=== PATIENT | female | born 1985 | race Caucasian/White ===

== ENCOUNTER → 2017-06-14 16:42 | Outpatient (CLI) | payer BC | END | disposition home or self-care (01) | LOC: D.MAMMO 09:00 | DX: N63 Unspecified lump in breast (principal) ==

== ENCOUNTER 2017-08-02 06:59 | Day surgery (SDC) | payer BC ==
[~2017-08-02 06:59] MED LIST: GIANVI PO; SYNTHROID75 MCG PO; ULTRAM50 MG PO
[2017-08-02 08:25] LABS: CALC OSMOLALITY 274 mosm/kg (275-300); CALCIUM 8.7 mg/dL (8.5-10.1); CHLORIDE - SERUM 104 mmol/L (98-107); CREATININE - SERUM 0.7 mg/dL (0.6-1.3); GLUCOSE 89 mg/dL (74-106); SODIUM 139 mmol/L (136-145); UREA NITROGEN 7 mg/dL (7-18); eGFR NON AFRICAN AMERICAN > 90 mL/min (90-120)
[2017-08-02 08:31] VITALS: BP 109/76; BMI 22.9
[2017-08-02 08:38] LABS: HCG URINE NEGATIVE (NEGATIVE)
[2017-08-02 09:03] LABS: BASOPHILS 0.4 % (0-2); EOSINOPHILS 1.4 % (0-7); HEMATOCRIT 39.3 % (36.0-48.0); HEMOGLOBIN 13.3 g/dL (12-16); IMMATURE GRANULOCYTES 0.2 % (0-5); LYMPHOCYTES 29.8 % (15-50); MCH 30.6 pg (26.0-34.0); MCHC 33.8 g/dL (31.0-37.0); MCV 90.3 fL (80.0-100.0); MEAN PLATELET VOLUME 11.5 fL (7.4-10.4); MONOCYTES 7.6 % (2-11); NEUTROPHILS 60.6 % (40-80); PLATELET COUNT 251 10x3/uL (130-400); RBC 4.35 10x6/uL (4.00-5.40); RDW 12.5 % (11.5-14.5); WBC 5.6 10x3/uL (4.8-10.8)
[2017-08-02] MEDS ORDERED: HYDROCODONE-APA1 TAB PO (10:04)
--- NOTE | 2017-08-02 10:55 | NUR ---
1050 NORCO 10MG PO GIVEN FOR C/O PAIN 03/05. FL DIET SERVED. CRITERIA FOR RELEASE GIVEN. TIME FRAMES FOR RELEASE GIVEN.
--- NOTE | 2017-08-09 14:51 | OP ---
PATIENT NAME: RAYSHAWN ZHONG MEDICAL RECORD: [id number] :87 LOCATION:D.OPS ADMISSION DATE: SURGEON: LAURA DAVENPORT MD DATE OF OPERATION: 08/02/2017 PREOPERATIVE DIAGNOSES: 1. Internal hemorrhoids. 2. Hypothyroidism. POSTOPERATIVE DIAGNOSES: 1. Internal hemorrhoids. 2. Hypothyroidism. 3. Anal skin tag. PROCEDURES: Anal exam under anesthesia with removal of anal skin tags and banding of left lateral internal hemorrhoid. SURGEON: Laura Davenport MD REPORT OF PROCEDURE: The patient was placed in the jackknife prone position and the perianal region was prepped and draped in sterile fashion. An anoscope was inserted and a 360 degree inspection was performed. The patient had 3 anal skin tags with there being a large one on the left lateral aspect. This large left lateral skin tag was consistent with a pedunculated mass, which was seen in clinic. This had a small base. We elevated the skin tag and removed it using electrocautery. The skin tag penetrated right at the dentate line. There were 3 other small skin tags present and these were all removed with electrocautery. As we inspected the anus some more, there was some friability to the tissue in the left lateral aspect with what appeared to be a small conglomerate of internal hemorrhoids. These were grasped and elevated, and a 2-0 chromic was placed around the base of them in a banding fashion. This was tied down tightly. At this point, there appear to be no sign of any active bleeding. A 10 cc of 0.25% Marcaine with epinephrine was infused in the surrounding tissues. At this point, a dressing was placed over the anus. COMPLICATIONS: None. CONDITION: Stable. ANESTHESIA: General endotracheal and local. BLOOD LOSS: Minimal. TRANSINT:[id number] Voice Confirmation ID: [id number] DOCUMENT ID: [id number] LAURA DAVENPORT MD at 1451 CC: TIM ISLAS MD [id number] DICTATION DATE: 08/02/17 1008 SHEATHER: 08/02/17 1140 [facility] 08/02/17 [place] [id number]
== END 2017-08-02 11:50 | disposition home or self-care (01) ==
LOC: D.OPS 06:59 → D.PAN 09:30 → D.OPS 09:45 → D.PAN 09:45 → D.OPS 11:50
PROVIDERS: Surgery
DX: K64.8 Other hemorrhoids (principal); K64.4 Residual hemorrhoidal skin tags; E03.9 Hypothyroidism, unspecified; Z01.812 Encounter for preprocedural laboratory examination

== ENCOUNTER 2020-02-05 06:43 | Inpatient (IN) | payer MEDICAID ==
[~2020-02-05] VITALS: Ht 170.2 cm; Wt 74.8 kg
[2020-02-05] VITALS (8 sets, daily range): BP systolic 113–128; BP diastolic 49–81; BMI 25.9
[~2020-02-05 06:43] MED LIST changes: +HYDROCODONE-APA1 TAB PO
[2020-02-05] MEDS ORDERED: HYDROCODON-ACE1 EAC2 PO (06:47)
[2020-02-05 07:02] LABS: HEMATOCRIT 44.6 % (36.0-48.0); HEMOGLOBIN 14.8 g/dL (12-16); LYMPHOCYTES 4.4 % (15-50); MCH 30.4 pg (26.0-34.0); MCHC 33.2 g/dL (31.0-37.0); MCV 91.6 fL (80.0-100.0); MEAN PLATELET VOLUME 10.3 fL (7.4-10.4); NEUTROPHILS 89.3 % (40-80); PLATELET COUNT 204 10x3/uL (130-400); RBC 4.87 10x6/uL (4.00-5.40); RDW 12.4 % (11.5-14.5); WBC 16.9 10x3/uL (4.8-10.8)
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
[2020-02-05 07:15] LABS: CALC OSMOLALITY 272 mosm/kg (275-300); CALCIUM 8.8 mg/dL (8.5-10.1); CARBON DIOXIDE 20.8 mmol/L (21.0-32.0); CHLORIDE - SERUM 102 mmol/L (98-107); CREATININE - SERUM 0.9 mg/dL (0.6-1.3); POTASSIUM - SERUM 3.8 mmol/L (3.5-5.1); SODIUM 136 mmol/L (136-145); UREA NITROGEN 11 mg/dL (7-18); eGFR NON AFRICAN AMERICAN 76 mL/min (90-120)
[2020-02-05 07:16] LABS: GLUCOSE 135 mg/dL (74-106)
[2020-02-05 07:23] LABS: ALKALINE PHOSPHATASE 43 U/L (30-120); ALT (SGPT) 22 U/L (10-68); AMYLASE - SERUM 19 U/L (25-115); BILIRUBIN - TOTAL 0.48 mg/dL (0.2-1.3); LIPASE 51 U/L (73-393); PROTEIN - SERUM 7.8 g/dL (6.4-8.2); TROPONIN-I < 0.017 ng/mL (0.000-0.060)
[2020-02-05 07:36] LABS: HCG URINE NEGATIVE (NEGATIVE)
[2020-02-05 07:54] LABS: BILIRUBIN NEGATIVE (NEGATIVE); GLUCOSE NEGATIVE (NEGATIVE); KETONE SMALL mg/dL (NEGATIVE); NITRITE NEGATIVE (NEGATIVE); SPECIFIC GRAVITY 1.015 (1.005-1.020); UROBILINOGEN NORMAL (NORMAL)
[2020-02-05 07:56] LABS: BACTERIA MODERATE /hpf (NEGATIVE); RED CELLS - URINE 0-5 /hpf (0-5); WHITE CELLS - URINE 0-5 /hpf (NEGATIVE)
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
--- NOTE | 2020-02-05 11:53 | NUR ---
WAS MEDICATED WITH DILAUDID AT THIS TIME FOR C/O ABD. PAIN. C/L IN REACH AT BEDSIDE.
--- NOTE | 2020-02-05 12:16 | NUR ---
NO TELEMETRY AVAILABLE RIGHT NOW PLACED ON LIST.
--- NOTE | 2020-02-05 15:45 | MORECARE ---
CASE MANAGEMENT DISCHARGE SUMMARY PATIENT: RAYSHAWN ZHONG UNIT: [id number] ADM DATE: 02/05/20 AGE: 34 : [birth year] SEX: F ROOM/BED: D.2228 AUTHOR: SOFIE VASQUEZ PHYSICIAN: REFERRING PHYSICIAN: LYRIC HANKS DO DATE OF SERVICE: 02/05/20 Discharge Plan Patient Name: RAYSHAWN ZHONG Facility: [facility]:[place] : 1985 Planned Disposition: Anticipated Discharge Date: Discharge Date: Expected LOS: Initial Reviewer: [email or web address] Initial Review Date: 02/05/2020 Generated: 02/05/20 4:45 pm DCPIA - Discharge Planning Initial Assessment Updated by [email or web address]: Nilda Galaviz on 02/05/20 3:45 pm * Is the patient Alert and Oriented? Yes * PCP [facility] * Pharmacy [facility] * Preadmission Environment Home with Family * ADLs Independent * Equipment None * Additional services required to return to the preadmission environment? No * Can the patient safely return to the preadmission environment? Yes * Has this patient been hospitalized within the prior 30 days at any hospital? No Patient Name: RAYSHAWN ZHONG Page [id number] at 1545 All edits/amendments must be made on the electronic document DICTATION DATE: 02/05/20 1545 NURSING HOME ADMINISTRATOR: LIN 02/05/20 1545 RPT#: [id number] DC DATE: STATUS: ADM IN [facility] [address] [place] [address] END OF REPORT
--- NOTE | 2020-02-05 15:54 | MORECARE ---
CASE MANAGEMENT DISCHARGE SUMMARY PATIENT: RAYSHAWN ZHONG UNIT: [id number] ADM DATE: 02/05/20 AGE: 34 : 87 SEX: F ROOM/BED: D.2228 AUTHOR: SOFIE VASQUEZ PHYSICIAN: REFERRING PHYSICIAN: LYRIC HANKS DO DATE OF SERVICE: 02/05/20 Discharge Plan Patient Name: RAYSHAWN ZHONG Facility: [facility]:[place] : 1985 Planned Disposition: Anticipated Discharge Date: Discharge Date: Expected LOS: Initial Reviewer: [email or web address] Initial Review Date: 02/05/2020 Generated: 02/05/20 4:54 pm Comments DCP- Discharge Planning Updated by [email or web address]: Nilda Galaviz on 02/05/20 2:[address] Patient Name: RAYSHAWN ZHONG Admission Status: ER Accout number: [id number] Admission Date: 02-05-2020 : 1985 Admission Diagnosis: Attending: LYRIC HANKS Current LOS: 1 Anticipated DC Date: Planned Disposition: Primary Insurance: [employer] EXCHANGE Discharge Planning Comments: CM met with patient at bedside after explaining CM role and obtaining verbal consent. CM discussed availability / needs of home health, REHAB and medical equipment. PATIENT DENIES ANY DISCHARGE NEEDS AT THIS TIME. Electric Blanket Packer: Nilda Galaviz DCPIA - Discharge Planning Initial Assessment Updated by [email or web address]: Nilda Galaviz on 02/05/20 3:45 pm * Is the patient Alert and Oriented? Yes * PCP [facility] * Pharm[facility] * Preadmission Environment Home with Family * ADLs Independent * Equipment None * Additional services required to return to the preadmission environment? No * Can the patient safely return to the preadmission environment? Yes * Has this patient been hospitalized within the prior 30 days at any hospital? No Last DP export: 02/05/20 2:45 p Patient Name: RAYSHAWN ZHONG Page [id number] at 9284 All edits/amendments must be made on the electronic document DICTATION DATE: 02/05/20 5883 DRAMATIC TEACHER: LIN 02/05/20 6249 RPT#: [id number] DC DATE: STATUS: ADM IN [facility] [address] [place] [address] END OF REPORT
--- NOTE | 2020-02-05 19:10 | NUR ---
LYING IN BED. LETHARGIC AND SPEECH SLURRED. CONFUSED. ORIENTED TO SELF AND PLACE. STATES ITS 1985, THEN SAID NO...20. APPEARS SEDATED FROM DILAUDID GIVEN EARLIER. CONT SAO2 MONITOR IN USE. V/S STABLE. TELEMETRY SHOWS SR WITH RATE OF 81. DENIES NAUSEA. ZOFRAN DRIP IN USE. NS @ 75 ML/HR INFUSING IN LT AC. REFUSED SCDS. ASSISTED UP TO BSC. BARB ALARM PLACED ON BED. C/O H/A. SR ELEVATED X2. CL IN REACH. REPORTS NECK IS STIFF AND SORE.
--- NOTE | 2020-02-05 20:40 | NUR ---
REQUESTING PAIN MED. MORE ALERT NOW. UP TO BR. DIARRHEA NOTED. MEDICATED WITH DILAUDID. BARB ALARM ON. CL IN REACH.
--- NOTE | 2020-02-05 23:20 | NUR ---
TELLS APPLIER THAT SHE CANT MOVE HER NECK. PT IS ABLE TO MOVE NECK BUT STATES IT HURTS. SAYS IT HURT BEFORE SHE WAS ADMITTED. NOTIFIED NATY OF PT C/O NECK PAIN AND STIFFNESS. ALSO NOTIFIED OF CONFUSION AND LETHARGY AT START OF SHIFT FROM DILAUDID. NEW ORDER NOTED TO CHANGE DILAUDID TO [id number] IN ORDER TO EVALUATE NEURO STATUS MORE EFFECTIVELY. PT WANTING PAIN MED. EXPLAINED THIS TO PT AND SHE GOT UPSET AND STARTED CRYING AND CALLED HER MOTHER TO TELL HER. MEDICATED WITH TYLENOL PER REQUEST FOR C/O H/A.
[2020-02-06 00:47] VITALS: BP 121/72
--- NOTE | 2020-02-06 02:30 | NUR ---
REQUESTED PAIN MED.MEDICATED WITH DILAUDID FOR C/O H/A AND ABD PAIN. CL IN REACH.
--- NOTE | 2020-02-06 03:38 | NUR ---
MEDICATED WITH TYLENOL FOR C/O H/A. CL IN REACH.
[2020-02-06 05:43] LABS: BASOPHILS 0.1 % (0-2); EOSINOPHILS 0 % (0-7); HEMATOCRIT 37.7 % (36.0-48.0); HEMOGLOBIN 12.2 g/dL (12-16); IMMATURE GRANULOCYTES 0.4 % (0-5); LYMPHOCYTES 12.9 % (15-50); MCH 30.2 pg (26.0-34.0); MCHC 32.4 g/dL (31.0-37.0); MCV 93.3 fL (80.0-100.0); MONOCYTES 7.5 % (2-11); NEUTROPHILS 79.1 % (40-80); PLATELET COUNT 187 10x3/uL (130-400); RBC 4.04 10x6/uL (4.00-5.40); RDW 12.7 % (11.5-14.5)
[2020-02-06 06:10] VITALS: BP 113/74
[2020-02-06 06:13] LABS: WBC 7.7 10x3/uL (4.8-10.8)
[2020-02-06 06:26] LABS: ALBUMIN 3.1 g/dL (3.4-5.0); ALKALINE PHOSPHATASE 33 U/L (30-120); ALT (SGPT) 18 U/L (10-68); BILIRUBIN - TOTAL 0.23 mg/dL (0.2-1.3); CALCIUM 8.1 mg/dL (8.5-10.1); CARBON DIOXIDE 20.6 mmol/L (21.0-32.0); CHLORIDE - SERUM 105 mmol/L (98-107); GLUCOSE 107 mg/dL (74-106); PHOSPHOROUS 1.9 mg/dL (2.5-4.9); PROTEIN - SERUM 6.4 g/dL (6.4-8.2); SODIUM 135 mmol/L (136-145)
[2020-02-06 06:34] LABS: CALC OSMOLALITY 266 mosm/kg (275-300); CREATININE - SERUM 0.6 mg/dL (0.6-1.3); UREA NITROGEN 5 mg/dL (7-18); eGFR NON AFRICAN AMERICAN > 90 mL/min (90-120)
[2020-02-06 06:35] LABS: POTASSIUM - SERUM 2.9 mmol/L (3.5-5.1)
[2020-02-06 08:00] VITALS: BP 137/73
--- NOTE | 2020-02-06 08:00 | NUR ---
ASSESSMENT PER FLOW SHEET. PATIENT IS WITHOUT DISTRESS. REPORTS LOOSE STOOLS. WANTS PAIN MEDS WHEN TIME. MONITOR FOR NEEDS.
[2020-02-06 12:00] VITALS: BP 122/73
[2020-02-06 13:44] VITALS: Ht 170.2 cm; Wt 74.8 kg
[2020-02-06 16:00] VITALS: BP 146/86
[2020-02-06 21:08] VITALS: BP 134/85
[2020-02-07 01:06] VITALS: BP 119/79
[2020-02-07 05:39] LABS: BASOPHILS 0.2 % (0-2); EOSINOPHILS 1.8 % (0-7); HEMATOCRIT 36.1 % (36.0-48.0); HEMOGLOBIN 11.7 g/dL (12-16); IMMATURE GRANULOCYTES 0.2 % (0-5); LYMPHOCYTES 32.4 % (15-50); MCH 30.2 pg (26.0-34.0); MCHC 32.4 g/dL (31.0-37.0); MCV 93.3 fL (80.0-100.0); MONOCYTES 16.8 % (2-11); NEUTROPHILS 48.6 % (40-80); PLATELET COUNT 169 10x3/uL (130-400); RBC 3.87 10x6/uL (4.00-5.40); RDW 12.8 % (11.5-14.5)
[2020-02-07 05:50] LABS: WBC 5.5 10x3/uL (4.8-10.8)
[2020-02-07 06:02] LABS: ALBUMIN 3.1 g/dL (3.4-5.0); ALKALINE PHOSPHATASE 29 U/L (30-120); ALT (SGPT) 20 U/L (10-68); BILIRUBIN - TOTAL 0.16 mg/dL (0.2-1.3); CALC OSMOLALITY 274 mosm/kg (275-300); CALCIUM 7.9 mg/dL (8.5-10.1); CARBON DIOXIDE 20.7 mmol/L (21.0-32.0); CHLORIDE - SERUM 108 mmol/L (98-107); CREATININE - SERUM 0.5 mg/dL (0.6-1.3); GLUCOSE 93 mg/dL (74-106); PHOSPHOROUS 2.8 mg/dL (2.5-4.9); POTASSIUM - SERUM 3.7 mmol/L (3.5-5.1); PROTEIN - SERUM 5.8 g/dL (6.4-8.2); SODIUM 139 mmol/L (136-145); UREA NITROGEN 4 mg/dL (7-18); eGFR NON AFRICAN AMERICAN > 90 mL/min (90-120)
[2020-02-07 06:58] VITALS: BP 119/84
[2020-02-07 08:00] VITALS: BP 124/80
[2020-02-07 12:00] VITALS: BP 108/84
--- NOTE | 2020-02-07 15:00 | NUR ---
IV OUT WITH CATH TIP INTACT
[2020-02-07] MEDS ORDERED: FLAGYL500 MG PO (15:12)
[2020-02-07] MEDS ORDERED: FLORAJEN3 CAPS460 MG PO (15:14)
[2020-02-07] MEDS ORDERED: PROTONIX40 MG PO (15:16)
[2020-02-07] MEDS ORDERED: CARAFATE1 G PO (15:16)
[2020-02-07] MEDS ORDERED: LOPERAMIDE HCL2 MG PO (15:17)
[2020-02-07] MEDS ORDERED: LEVAQUIN750 MG PO (15:19)
--- NOTE | 2020-02-07 15:40 | MORECARE ---
CASE MANAGEMENT DISCHARGE SUMMARY PATIENT: RAYSHAWN ZHONG UNIT: [id number] ADM DATE: 02/05/20 AGE: 34 : 87 SEX: F ROOM/BED: D.2228 AUTHOR: CHRISTINA,DOC PHYSICIAN: REFERRING PHYSICIAN: LYRIC HANKS DO DATE OF SERVICE: 02/07/20 Discharge Plan Patient Name: RAYSHAWN ZHONG Facility: [facility]:[place] : 1985 Planned Disposition: Anticipated Discharge Date: Discharge Date: Expected LOS: Initial Reviewer: [email or web address] Initial Review Date: 02/05/2020 Generated: 02/07/20 4:40 pm Comments DCP- Discharge Planning Updated by [email or web address]: Nilda Galaviz on 02/07/20 2:[address] Patient Name: RAYSHAWN ZHONG Encounter No: [id number] : 1985 Primary Insurance: [facility] [employer] Anticipated DC Date: Planned Disposition: External Planned Provider: : DCP follow-up note: Patient and family in agreement with discharge plan. No changes to plan. Case management will follow and assist as needed. Nilda Galaviz DCP- Discharge Planning Updated by [email or web address]: Nilda Galaviz on 02/05/20 2:[address] Patient Name: RAYSHAWN ZHONG Admission Status: ER Accout number: [id number] Admission Date: 02-05-2020 : 1985 Admission Diagnosis: Attending: LYRIC HANKS Current LOS: 1 Anticipated DC Date: Planned Disposition: Primary Insurance: [employer] EXCHANGE Discharge Planning Comments: CM met with patient at bedside after explaining CM role and obtaining verbal consent. CM discussed availability / needs of home health, REHAB and medical equipment. PATIENT DENIES ANY DISCHARGE NEEDS AT THIS TIME. Risk Management Internship: Nilda Galaviz DCPIA - Discharge Planning Initial Assessment Updated by [email or web address]: Nilda Galaviz on 02/05/20 3:45 pm * Is the patient Alert and Oriented? Yes * PCP [facility] * Pharmacy [facility] * Preadmission Environment Home with Family * ADLs Independent * Equipment None * Additional services required to return to the preadmission environment? No * Can the patient safely return to the preadmission environment? Yes * Has this patient been hospitalized within the prior 30 days at any hospital? No Last DP export: 02/05/20 2:54 p Patient Name: RAYSHAWN ZHONG Page 70455 at 1540 All edits/amendments must be made on the electronic document DICTATION DATE: 02/07/201539 DAIRY NUTRITION SPECIALIST: LIN 02/07/201539 RPT#: [id number] DC DATE: STATUS: ADM IN [facility] [address] [place] [address] END OF REPORT
[2020-02-07 16:18] VITALS: BP 123/86
--- NOTE | 2020-02-07 17:44 | NUR ---
DISCHARGE INSTRUCTIONS,STATES UNDERSTANDING.WAITING ON RIDE TO GO HOME
--- NOTE | 2020-02-07 17:55 | NUR ---
LEFT UNIT VIA WHEELCHAIR FOR TRANSPORT HOME
--- NOTE | 2020-02-08 09:01 | MORECARE ---
CASE MANAGEMENT DISCHARGE SUMMARY PATIENT: RAYSHAWN ZHONG UNIT: [id number] ADM DATE: 02/05/20 AGE: 34 : 87 SEX: F ROOM/BED: D.2228 AUTHOR: CHRISTINA,DOC PHYSICIAN: REFERRING PHYSICIAN: LYRIC HANKS DO DATE OF SERVICE: 02/08/20 Discharge Plan Patient Name: RAYSHAWN ZHONG Facility: [facility]:[place] : 1985 Planned Disposition: Anticipated Discharge Date: Discharge Date: 02/07/2020 Expected LOS: Initial Reviewer: [email or web address] Initial Review Date: 02/05/2020 Generated: 02/08/20 10:00 am Comments DCP- Discharge Planning Updated by [email or web address]: Nilda Galaviz on 02/07/20 2:[address] Patient Name: RAYSHAWN ZHONG Encounter No: [id number] : 1985 Primary Insurance: [facility] [employer] Anticipated DC Date: Planned Disposition: External Planned Provider: : DCP follow-up note: Patient and family in agreement with discharge plan. No changes to plan. Case management will follow and assist as needed. Nilda Galaviz DCP- Discharge Planning Updated by [email or web address]: Nilda Galaviz on 02/05/20 2:[address] Patient Name: RAYSHAWN ZHONG Admission Status: ER Accout number: [id number] Admission Date: 02-05-2020 : 1985 Admission Diagnosis: Attending: LYRIC HANKS Current LOS: 1 Anticipated DC Date: Planned Disposition: Primary Insurance: [employer] EXCHANGE Discharge Planning Comments: CM met with patient at bedside after explaining CM role and obtaining verbal consent. CM discussed availability / needs of home health, REHAB and medical equipment. PATIENT DENIES ANY DISCHARGE NEEDS AT THIS TIME. Burnisher: Nilda Galaviz DCPIA - Discharge Planning Initial Assessment Updated by [email or web address]: Nilda Galaviz on 02/05/20 3:45 pm * Is the patient Alert and Oriented? Yes * PCP [facility] * Pharmacy [facility] * Preadmission Environment Home with Family * ADLs Independent * Equipment None * Additional services required to return to the preadmission environment? No * Can the patient safely return to the preadmission environment? Yes * Has this patient been hospitalized within the prior 30 days at any hospital? No Last DP export: 02/07/20 2:40 p Patient Name: RAYSHAWN ZHONG Page 43673 at 0901 All edits/amendments must be made on the electronic document DICTATION DATE: 02/08/20899 OBSERVATORY DIRECTOR: LIN 02/08/20899 RPT#: [id number] DC DATE:02/07/20 STATUS: DIS IN [facility] [address] [place] [address] END OF REPORT
[2020-02-08 16:08] LABS: OVA + PARASITE EXAM Final report (())
== END 2020-02-07 18:14 | disposition home or self-care (01) | DRG 871 ==
LOC: D.ER 06:43 → D.MS 10:43
PROVIDERS: Emergency Medicine; Family Medicine; ADMIT Family Medicine; ATTEND Family Medicine
DX: A41.9 Sepsis, unspecified organism (principal); G92 Toxic encephalopathy; N39.0 Urinary tract infection, site not specified; A09 Infectious gastroenteritis and colitis, unspecified; E03.9 Hypothyroidism, unspecified; K52.9 Noninfective gastroenteritis and colitis, unspecified